=== PATIENT | female | born 1960 | race Caucasian/White ===

== ENCOUNTER 2023-04-07 06:55 | Emergency (ER) | payer OTHER, SELFPAY ==
--- NOTE | ~2023-04-07 | XR_ITS ---
EXAMINATION: X-ray the right ankle and foot CLINICAL INFORMATION: Fall acute pain COMPARISON: None. TECHNIQUE: 3 views of the right ankle and 3 views of the right foot FINDINGS: Right foot: There is a minimally displaced/distracted fracture the base of the fifth metatarsal. The fracture gap measures approximately 1.7 mm. no additional fractures. There is a small plantar calcaneal spur. Right ankle: Base of fifth metatarsal fracture redemonstrated. There is a focal lucency in the medial dome of the talus measuring 5 mm transverse which could reflect an area of osteochondritis dissecans. The bones joints and soft tissues are otherwise unremarkable. XR/XR foot RT min 3V IMPRESSION: 1. Minimally displaced/distracted fracture at the base of the fifth metatarsal. 2. 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 3. Plantar calcaneal spur. 4. No additional fractures.
--- NOTE | ~2023-04-07 | XR_ITS ---
EXAMINATION: X-ray the right ankle and foot CLINICAL INFORMATION: Fall acute pain COMPARISON: None. TECHNIQUE: 3 views of the right ankle and 3 views of the right foot FINDINGS: Right foot: There is a minimally displaced/distracted fracture the base of the fifth metatarsal. The fracture gap measures approximately 1.7 mm. no additional fractures. There is a small plantar calcaneal spur. Right ankle: Base of fifth metatarsal fracture redemonstrated. There is a focal lucency in the medial dome of the talus measuring 5 mm transverse which could reflect an area of osteochondritis dissecans. The bones joints and soft tissues are otherwise unremarkable. XR/XR ankle RT 2V IMPRESSION: 1. Minimally displaced/distracted fracture at the base of the fifth metatarsal. 2. 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 3. Plantar calcaneal spur. 4. No additional fractures.
[2023-04-07 06:56] VITALS: BP 154/97; PULSE 79; RESP 18; TEMP 36.8; O2SAT 94; BMI 28.9
--- NOTE | 2023-04-07 07:21 | ED.LOWEXIN ---
HPI - Extremity Injury (Lower) General Chief Complaint: Extremity Injury, Lower Stated Complaint: right foot inj, trip/fall Time Seen by Provider: 04/07/23 07:14 Source: patient Mode of arrival: ambulatory Limitations: no limitations History of Present Illness HPI Narrative: This is a 62-year-old female presenting to the emergency department for evaluation of right foot and ankle pain for the past week worsening, patient reports about a week ago she got up to go the bathroom, and tripped on the floor, she reports that she moved her ankle the wrong way, and immediately started having swelling and pain. She has been using ice with little to no relief. Despite icing and elevating extremity swelling has worsened. She reports she is barely able to bear weight on to her right lower extremity. No previous issues with right ankle or foot. Denies numbness, tingling, fevers, chills. When she tripped she did not fall, hit her head or lose consciousness. Related Data Previous Rx's Medication Instructions Recorded ketorolac 10 mg tablet 10 mg PO TID PRN pain 5 days #15 04/07/23 tabs Allergies Allergy/AdvReac Type Severity Reaction Status Date / Time No Known Allergies Allergy Verified 04/07/23 07:02 Review of Systems Review of Systems: Constitutional : No Weight loss, No Fever, No Chills, No Fatigue, No Malaise ENT/Mouth : No sore throat, No Rhinorrhea Eyes: No Eye Pain, No Swelling, No Redness Cardiovascular : No Chest Pain, No SOB, No Dyspnea on Exertion, No Orthopnea, No Edema, No Palpitations Respiratory : No Cough, No Sputum, No Wheezing Gastrointestinal : No Nausea, No Vomiting, No Diarrhea, No Constipation, No abdominal Pain, No Hematochezia, No Melena Genitourinary : No Dysuria, No Urinary Frequency, No Hematuria, Musculoskeletal : + joint pain, No Myalgias, + Joint Swelling Skin : No Skin Lesions, No rash Neuro : No Weakness, No Numbness, No Dizziness, No Headache Psych : No Anxiety/Panic, No Depression All other systems reviewed and are negative Yes all other systems are reviewed and are negative [facility] Past Medical History Attestation statement: The following information was validated with the patient. Source: old records reviewed and nursing notes reviewed Social History Social History Advance Directives: No Advance Directives Information Provided: No Physical Exam Vital Signs: Vital Signs: Last Vital Signs Temp 98.2 F 04/07/23 06:56 Pulse 79 04/07/23 06:56 Resp 18 04/07/23 06:56 BP 154/97 H 04/07/23 06:56 Pulse Ox 94 04/07/23 06:56 O2 Del Method Room Air 04/07/23 06:56 BMI result Body Mass Index 28.9 Vital signs stable Appearance: Alert.? Oriented X3.? No acute distress.? Head: Normocephalic, atraumatic, no step-offs or deformities Eyes: Pupils equal, round and reactive to light.? CVS: Normal heart rate and rhythm.? Pulses normal.? Respiratory: No respiratory distress.? Breath sounds normal.? Abdomen: Soft and nontender.? Skin: Skin warm and dry.? Normal skin color.? Normal skin turgor.? Extremities: No lower extremity edema.?5/5 strength to bilateral upper and lower extremities + tenderness to palpation to the lateral aspect of right ankle and to the right 5th metatarsal region with overlying erythema. No warmth. Range of motion to right ankle/toes limited secondary to pain. Full range of motion to left ankle and foot. 2+ dorsalis pedis, anterior tibialis and posterior tibialis pulses equal bilateral. Normal sensation distally. No footdrop. Negative Kelechi bilaterally Neuro: Oriented X 3.? No motor deficit.? No sensory deficit. CN 2-12 intact Course Reevaluation(s) Reevaluation #1: X-ray right but minimally displaced and distracted fracture of the base of the 5th metatarsal. Osteochondritis of talus, plantar calcaneal spur, no additional fractures. Patient given a walking shoe, crutches and Toradol. Advised to follow-up with orthopedic team within a week. Educated patient on diagnosis and treatment plan, answered all question, patient verbalizes understanding. At this time patient will be discharged home, advised to return with new or worsening symptoms. Educated on worrisome signs and symptoms and when to return. At this time I feel comfortable discharge home. Time: 08:06 Medications Administered Discontinued Medications Generic Name Dose Route Start Last Admin Trade Name Freq PRN Reason Stop Dose Admin Ketorolac Tromethamine 30 mg 04/07/23 07:40 04/07/23 07:49 Ketorolac Tromethamine 15 Mg/Ml Vial IM 04/07/23 07:41 30 mg ONCE ONE Administration Medical Decision Making Medical Decision Making [facility] Narrative: [id number] 62-year-old female presents with right ankle and foot pain for the past week, worsening, has not yet been seen for this injury. Denies numbness and tingling. Physical exam tenderness to palpation to the lateral aspect of right ankle and to the right 5th metatarsal region with overlying erythema. No warmth. Range of motion to right ankle/toes limited secondary to pain. Full range of motion to left ankle and foot. 2+ dorsalis pedis, anterior tibialis and posterior tibialis pulses equal bilateral. Normal sensation distally. No footdrop. Negative Kelechi bilaterally Concerns for fracture versus dislocation versus sprain or strain. Unlikely neurovascular compromise or threat to Elizabeth. No signs of septic joint. Plan at this time imaging. Differential Diagnosis Differential Diagnoses: The differential diagnosis associated with the presentation includes Concerns for fracture versus dislocation versus sprain or strain. Unlikely neurovascular compromise or threat to Elizabeth. No signs of septic joint. Admission/Observation Consideration of admission/observation: Escalation of care including admission/observation considered Unlikely Independent Interpretation I performed an independent interpretation of an: Plain X-Ray (XR/XR foot RT min 3V IMPRESSION: 1. Minimally displaced/distracted fracture at the base of the fifth metatarsal. 2. 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 3. Plantar calcaneal spur. 4. No additional fractures.) Radiology Impression Discussion of test interpretation with radiology: I have reviewed the radiologist's reading. Prescription Management I considered prescription management with: Pain Medication Core Measures AMI core measures followed: Yes Measure exclusions: not indicated Critical Care Time Critical Care Time Critical Care Time: No Discharge Plan Discharge Clinical Impression: Fracture of 5th metatarsal Patient Disposition: Home, Self-Care Instructions: Foot Fracture in Adults (ED), R.I.C.E. Treatment (ED) Additional Instructions: Take your medications as prescribed. If you were prescribed antibiotics today, it is important that you take your medication to their entirety, do not skip any doses, do not finish them early. Follow-up with your primary care provider this week. Return to the emergency department with new or worsening symptoms. Such as fevers, chills, chest pain, shortness of breath, nausea, vomiting, dizziness, headache, vision changes, lethargy In case of emergency call 911 Toradol has been sent to your pharmacy, you tolerated this well in the department. Please take this as prescribed do not take this with ibuprofen, or other NSAIDs, do not mix this with alcohol. Side effects of this medication including increased risk for bleeding and possible kidney injury. XR/XR foot RT min 3V IMPRESSION: 1.? Minimally displaced/distracted fracture at the base of the fifth metatarsal. 2.? 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 3.? Plantar calcaneal spur. 4.? No additional fractures. ? Prescriptions: New ketorolac 10 mg tablet 10 mg PO TID PRN (Reason: pain) 5 Days Qty: 15 0RF Referrals: [facility] [place] [facility] [Provider Group] - 2 days Physician,Unknown J [Physician] - 2 days Stand Alone Forms: Work/School Release
[2023-04-07] MEDS: Ketorolac Tromethamine 15 MG/ML VIAL 30 MG IM (07:49)
--- NOTE | 2023-04-07 08:36 | PC.NURSE ---
post op shoe and crutches given w teaching
== END 2023-04-07 08:37 | disposition home or self-care (01) ==
PROVIDERS: Emergency Provider Emergency Medicine; PCP Nurse Practitioner Family
DX: S92.351A Displaced fracture of fifth metatarsal bone, right foot, initial encounter for closed fracture (principal); W18.40XA Slipping, tripping and stumbling without falling, unspecified, initial encounter; Y93.9 Activity, unspecified; Y92.9 Unspecified place or not applicable; M25.571 Pain in right ankle and joints of right foot
CPT/HCPCS: 73600; 73630; 96372; 99283; 99284; J1885